=== PATIENT | female | born 2000 | race Caucasian/White ===

== ENCOUNTER → 2020-12-29 | Emergency (ER) | payer MEDICAID, OTHER ==
[~2020-12-29] VITALS: Ht 162.6 cm; Wt 59.1 kg
[~2020-12-29] MED LIST: CEPH-585 PO; CEPH250T PO; HYDR-3965 PO; LIDOcaine 1% W/epiNEPHrine 1:200,000 10ml vial IJ ONE; TETanus/Pertussis (Acell)/Diphther VAC/PF (Tdap-Adult) 0.5ml syringe IMVAC ONE
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
--- NOTE | 2020-12-29 16:48 | NUR ---
CMS INTACT TO L FINGERS
[2020-12-29 18:50] VITALS: BP 105/65
== END | disposition home or self-care (01) ==
LOC: ER 22:27
DX: S62.613B Displaced fracture of proximal phalanx of left middle finger, initial encounter for open fracture (principal); Z79.899 Other long term (current) drug therapy; V29.9XXA Motorcycle rider (driver) (passenger) injured in unspecified traffic accident, initial encounter; Y93.89 Activity, other specified; Y92.488 Other paved roadways as the place of occurrence of the external cause; Y99.8 Other external cause status
CPT/HCPCS: 26735; 73140; 90471; 90715; 99284

== ENCOUNTER 2021-01-09 09:16 | Day surgery (SDC) | payer MEDICAID, OTHER ==
[2021-01-02 15:44] LABS: BASOPHILS % (AUTO) 0.5 % (0-1); EOSINOPHILS # (AUTO) 0.8 X10'3 (0-0.9); EOSINOPHILS % (AUTO) 8.3 % (0-6); LYMPHOCYTES # (AUTO) 1.8 X10'3 (1.1-4.8); LYMPHOCYTES % (AUTO) 20.3 % (21-51); MEAN CORPUSCULAR HEMOGLOBIN 31.9 PG (27.0-31.0); MEAN CORPUSCULAR HGB CONC 33.3 g/dL (33.0-36.5); MEAN PLATELET VOLUME 8.9 FL (7.4-10.4); MONOCYTES # (AUTO) 0.7 X10'3 (0-0.9); MONOCYTES % (AUTO) 7.9 % (2-12); NEUTROPHILS # (AUTO) 5.7 X10'3 (1.8-7.7); PRE OP HEMATOCRIT 39.2 % (35.0-45.0); PRE OP PLATELET COUNT 262 X10'3 (140-440); RED BLOOD COUNT 4.08 X10'6 (4.20-5.60); RED CELL DISTRIBUTION WIDTH 13.6 % (11.5-14.5)
[2021-01-02 16:15] LABS: HCG SERUM QL NEGATIVE
[~2021-01-09] VITALS: Ht 162.6 cm; Wt 62.0 kg
[2021-01-09] VITALS (13 sets, daily range): BP systolic 102–121; BP diastolic 47–88
[~2021-01-09 09:16] MED LIST changes: -CEPH-585 PO; -LIDOcaine 1% W/epiNEPHrine 1:200,000 10ml vial IJ ONE; -TETanus/Pertussis (Acell)/Diphther VAC/PF (Tdap-Adult) 0.5ml syringe IMVAC ONE; +ceFAZolin 2gm in dextrose, iso 50 ML IV ONE; +famotidine 20mg tablet PO ONE; +ringers solution, lacted 1,000 ML IV SCH
[2021-01-09] MEDS ORDERED: BUPIVAcaine/PF 2.5mg/ml (0.25%) 10ml vial ONE (10:31)
[2021-01-09] MEDS ORDERED: fentaNYL/PF 50MCG/1 ML 2ML syringe ONE ×2 (11:50→11:58)
[2021-01-09] MEDS ORDERED: midazolam 1 mg/ML 2ml injection ONE (11:52)
[2021-01-09] MEDS ORDERED: propofol inj 20 ML IV ONE (12:43)
[2021-01-09] MEDS ORDERED: LIDOcaine 2% (20mg/ml) 5ml vial ONE (12:43)
[2021-01-09] MEDS ORDERED: ondansetron/PF 4mg/2ml inj ONE (12:43)
[2021-01-09] MEDS ORDERED: dexamethasone sod phosphate 4mg/ml inj. ONE (12:43)
[2021-01-09] MEDS ORDERED: bacitracin 15gm ointment TP ONE (12:45)
[2021-01-09] MEDS ORDERED: meperidine/PF 25mg/ml syringe ONE ×2 (12:56→13:14)
--- NOTE | 2021-01-09 13:12 | NUR ---
Received from OR via [facility] , accompanied by Anesthesiologist MADELAINE and report given by Anesthesiolgist. PT. WITH 20 GAUGE PIV RUE RUNNING LR AT 100ML/HR. LUE IN SPLINT CDI, FINGER TIPS EXPOSED, GOOD CAP. REFILL, ELEVATED ON 1 PILLOW ABOVE HEART. ESTUARDO LARSEN DONNED FOR COMFORT. 10 L. MASK ON , 100% SATURATED. PT. DENIES PAIN AT THIS TIME. FULL SENSATION AND MOVEMENT. Addendum: 01/09/21 at 1331 by Shahla Walsh RN Amended: Links added.
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
[2021-01-09] MEDS ORDERED: proCHLORperazine 10 MG/2 ml inj IV PRN (13:40)
[2021-01-09] MEDS ORDERED: meperidine/PF 25mg/ml syringe IV PRN ×3 (13:40)
[2021-01-09] MEDS ORDERED: ringers solution, lacted 1,000 ML IV SCH (13:40)
[2021-01-09] MEDS ORDERED: ondansetron/PF 4mg/2ml inj IV PRN (13:40)
[2021-01-09] MEDS ORDERED: morphine 2 MG/ML inj. syringe IV PRN ×2 (13:40→13:55)
[2021-01-09] MEDS ORDERED: morphine 4 MG/ML inj SYRINge IV PRN ×2 (13:40→13:55)
[2021-01-09] MEDS ORDERED: HYDROmorphone/PF 0.2 MG/ML SYRINGE IV PRN ×2 (13:55)
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
== END 2021-01-09 15:02 | disposition home or self-care (01) ==
LOC: PAS 09:16
PROVIDERS: ATTEND Orthopaedic Surgery
DX: S62.623A Displaced fracture of middle phalanx of left middle finger, initial encounter for closed fracture (principal); Z72.89 Other problems related to lifestyle; F12.90 Cannabis use, unspecified, uncomplicated; Z98.890 Other specified postprocedural states; Z79.899 Other long term (current) drug therapy; Z20.822 Contact with and (suspected) exposure to COVID-19; W23.0XXA Caught, crushed, jammed, or pinched between moving objects, initial encounter; Y93.89 Activity, other specified; Y92.89 Other specified places as the place of occurrence of the external cause; Y99.8 Other external cause status
CPT/HCPCS: 26746; 36415; 82948; 84703; 85025; 87635; A6222; C1713; J1100; J1170; J2001; J2175; J2250; J2270; J2405; J2704; J3010; J3490; A4215; A4618; A6258; A6449; A6455; A7000; J7120

== ENCOUNTER 2025-10-11 17:21 | Emergency (ER) | payer MEDICAID, OTHER ==
[~2025-10-11] VITALS: Ht 162.6 cm; Wt 61.4 kg
[~2025-10-11 17:21] MED LIST changes: -ceFAZolin 2gm in dextrose, iso 50 ML IV ONE; -famotidine 20mg tablet PO ONE; -ringers solution, lacted 1,000 ML IV SCH
[2025-10-11 17:30] VITALS: BP 136/100; PULSE 64; O2SAT 99
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
[2025-10-11] MEDS ORDERED: LIDO-52 TOP (19:04)
[2025-10-11] MEDS ORDERED: CYCL-394 PO (19:04)
[2025-10-11] MEDS ORDERED: NAPR-56 PO (19:04)
[2025-10-11 19:40] VITALS: RESP 16
[2025-10-11] MEDS: ketorolac trometh 30MG/ML vial 30 MG/ML VIAL IM ONE (19:40)
[2025-10-11 20:25] LABS: URINE HCG NEGATIVE (NEG)
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
[2025-10-11 21:07] VITALS: TEMP 98.8
== END 2025-10-11 21:09 | disposition home or self-care (01) ==
LOC: ER 17:22
DX: S19.9XXA Unspecified injury of neck, initial encounter (principal); S09.90XA Unspecified injury of head, initial encounter; F17.200 Nicotine dependence, unspecified, uncomplicated; Z91.048 Other nonmedicinal substance allergy status; Z79.899 Other long term (current) drug therapy; V89.2XXA Person injured in unspecified motor-vehicle accident, traffic, initial encounter; Y93.89 Activity, other specified; Y92.89 Other specified places as the place of occurrence of the external cause; Y99.8 Other external cause status
CPT/HCPCS: 72040; 72070; 72100; 81025; 96372; 99284; J1885